=== PATIENT | male | born 1950 | race Caucasian/White ===

== ENCOUNTER 2018-08-05 10:07 | Inpatient (IN) ==
--- NOTE | 2018-07-16 12:22 | PAT Medication Instructions ---
Medication Instructions Date of Service July 16, 2018 Home Medications atorvastatin 20 mg PO QAM benazepril 20 mg PO QAM hydrochlorothiazide 25 mg PO QAM irbesartan 300 mg PO QAM DO NOT take the morning of surgery benazepril 20 mg PO QAM hydrochlorothiazide 25 mg PO QAM irbesartan 300 mg PO QAM Take morning of surgery With a small sip of water, OTHERWISE NOTHING TO EAT OR DRINK AFTER MIDNIGHT: atorvastatin 20 mg PO QAM Other Notes If you have any questions please call us at [phone] or [phone] or [phone] or [phone]
--- NOTE | 2018-07-17 08:22 | History & Physical Report ---
Date of Service July 17, 2018 Date of Surgery: 08-05-18 Assessment & Plan (1) Arthritis of right shoulder region: Risks and benefits of procedure discussed in detail today, patient would like to proceed with a right shoulder resurfacing vs total shoulder replacement at [facility] as scheduled on 08-05-18. Will place on ASA 81mg po bid x 1 month post op, f/u 2 weeks post op for routine post-operative care and x-ray, sooner if having any problems. will make arrangements for OPPT at the time of discharge as [place]. At this point in time, has failed conservative measures and would like to proceed with surgical intervention. History of Present Illness Chief Complaint: Right Shoulder pain Primary Care Provider: Christopher Warner Mr Smith is a 68 year old male who complains of right shoulder pain, presents for pre-op evaluation prior to Right shoulder resurfacing vs total shoulder replacement on 08-05-[address] Burnett. Pt had prior surgery in the . He presents with pain and decreased ROM on the right side. He states that the symptoms have been chronic non-traumatic. The symptoms occur constantly with intermittent worsening, and currently the patient states that the symptoms are moderate. The patient is experiencing pain anterior shoulder as well as lateral. The symptoms are aggravated by daily activities, lifting away from the body, reaching behind and reaching overhead. He denies any instability, currently rates his pain as 5/10, worse is 8/10. his xrays show advanced degenerative changes to the glenohumeral joint. Allergies Allergy/AdvReac Type Severity Reaction Status Date / Time No Known Allergies Allergy Unverified 07/16/18 11:12 Home Medications Home Medications Medication Instructions Recorded Confirmed Type atorvastatin 20 mg PO QAM 07/16/18 07/16/18 History benazepril 20 mg PO QAM 07/16/18 07/16/18 History hydrochlorothiazide 25 mg PO QAM 07/16/18 07/16/18 History irbesartan 300 mg PO QAM 07/16/18 07/16/18 History Past Med/Surg History Medical History Hyperlipidemia Hypertension Surgical History History of appendectomy History of colonoscopy History of total knee replacement BILATERAL S/P rotator cuff repair in the Family History Brother Family history of diabetes mellitus Social History Preferred Language: Cambodian Communication Ability: Effective Solar [employer] Required: No Beliefs That Will Affect Care: None Current Living Situation: Spouse Other Information That Helps Us Care for You: No Feels Safe at Home: Yes Safety Concerns: Feels Safe At This Time Smoking Status: Never smoker Do You Dip or Chew Tobacco: No Second Hand Exposure: No Tobacco Cessation Education Requested by Patient: No Hx Alcohol Use: No Hx Substance Use: No Review of Systems Review of Systems: All systems reviewed & are unremarkable except as noted in HPI & below Constitutional: no fever, no chills and no sweats Respiratory: no cough and no dyspnea Cardiovascular: no chest pain, no dyspnea and no orthopnea Gastrointestinal: no abdominal pain, no nausea and no vomiting Musculoskeletal: as per Subjective / HPI Integumentary: no rash and no lesions Physical Exam Physical Exam: Ht: 5ft 11in Wt: 108.86kg BP: 148/86 Pulse: 82 Constitutional: WD/WN, vitals as above no acute distress Respiratory: normal respiratory effort, lungs clear to auscultation no respiratory distress, no labored breathing and does not use accessory muscles Cardiovascular: RRR, no murmur, no edema Gastrointestinal (Abdomen): normal bowel sounds, soft, nontender, no hepatosplenomegaly Inspection/Auscultation: abdomen not distended Musculoskeletal: Right Shoulder Physical Exam There is no ecchymosis or warmth, no significant swelling, positive Crepitation with active motion, Tenderness anterior aspect shoulder and AC joint. Belly press - Positive. Valladares Positive. Cross Body Positive. Neer's - positive. Strength tests - External rotation 4/5, Supraspinatus 4/5 no atrophy, Right shoulder range of motion: Active ROM - Flexion: 120 degrees, Ext Rot 90 Flex: 30 degrees, Abduction: 45 degrees, Factors: pain, Description: Pain with ROM. Passive ROM - Factors: pain. Neurovascular- Radial pulse palpable, radial/median/ulnar nerves intact. Elbow- full painless range of motion, no tenderness. Skin: no rashes, warm and dry Results & Data Diagnostic Findings right shoulder xray from 06-09-18 showing advanced degenerative changes to the right glenohumeral joint with osteophytes noted, complete loss of joint space, DJD AC joint. cystic changes humeral head, large osteophyte formation . no acute bony pathology.
--- NOTE | 2018-07-17 10:03 | Anesthesiology Consultation ---
Date of Service July 17, 2018 Assessment & Plan (1) Encounter for pre-operative examination: PCP CLEARANCE (07/29) = "preop labs and EKG reviewed and are acceptable and the patient is cleared for the planned surgery." *BP at PCP Clearance was 128/80 Chart Review Chart Review: Acceptable Risk for Surgery and Patient seen in Pre Admission Testing Teaching & Discussion Instructed NPO after midnight before surgery, except medications with 15 cc of water. Medication instructions provided according to the PAT guidelines. History Surgery Operation Date: 08/05/18 13:00 Proposed Procedures p Right Shoulder Tournier Resurfacing versus Hemiarthroplasty versus Total Shoulder Arthroplasy - Santo Burnett DO Height/Weight Height: 5 ft 11 in Weight: 110 kg Allergies Allergy/AdvReac Type Severity Reaction Status Date / Time No Known Allergies Allergy Unverified 07/16/18 11:12 Medications Home Medications Medication Instructions Recorded Confirmed Last Taken atorvastatin 20 mg PO QAM 07/16/18 07/16/18 Unknown benazepril 20 mg PO QAM 07/16/18 07/16/18 Unknown hydrochlorothiazide 25 mg PO QAM 07/16/18 07/16/18 Unknown irbesartan 300 mg PO QAM 07/16/18 07/16/18 Unknown Past Medical History Medical History Hyperlipidemia Hypertension Obesity Exercise / Class Metabolic Activity II 4-5 Yardwork/Stairs/Walk up hill (denies CP or SOB with several flights of stairs) Past Family History Family History Brother Family history of diabetes mellitus Past Surgical History Surgical History History of appendectomy History of colonoscopy History of total knee replacement BILATERAL S/P rotator cuff repair in the Past Anesthesia History No Hx of Anesthesia Complications and No Family Hx of Anesthesia Complications History of PONV No Hx of PONV and No Hx of Motion Sickness Social History Smoking Status: Never smoker Do You Dip or Chew Tobacco: No Hx Alcohol Use: Yes (very rare, once/month) Hx Substance Use: No substance use type: does not use Review of Systems Pt denies any recent chest pain, shortness of breath, palpitations, cough, fever or URI. Physical Exam Vital Signs BP: 152/91 (pt states this is abnormally high for him, he will be seen by PCP ) P: 52bpm SPO2: 97% RA T: 97.4 F R: 12 ENMT Mouth: no dental restorations, no chipped teeth and no loose teeth Thyromental Distance: > or= 3.5 Finger Breadths (3.5) Mallampati Class: I Missing two bicuspid R upper side. Neck normal visual inspection and + facial hair (thin short jean baptiste and mustache); neck extension not limited Respiratory normal respiratory effort Auscultation: lungs clear to auscultation bilaterally Cardiovascular Rate/Rhythm: regular rhythm and + bradycardic Heart Sounds: no murmur Vessels: no carotid bruit Extremities: no edema Testing Electrocardiogram Date: 07/17/18 Findings: + SB @ (51 with sinus arrhythmia) Nonspecific T wave abnormality. Chest X-Ray Date: 07/17/18 Findings: + NAD Laboratory Results PT 11.6 Seconds (9.0-12.0) 07/17/18 11:16 INR 1.1 (0.9-1.1) 07/17/18 11:16 APTT 26.2 Seconds (21.0-31.0) 07/17/18 11:16 Yellow 07/17/18 11:16 Clear (Clear) 07/17/18 11:16 >= 9.0 (4.5-7.5) H 07/17/18 11:16 Ur Specific [place] 1.010 (1.000-1.030) 07/17/18 11:16 Negative (Negative) 07/17/18 11:16 Negative (Negative) 07/17/18 11:16 Negative (Negative) 07/17/18 11:16 Negative (Negative) 07/17/18 11:16 Ur Leukocyte Esterase Negative (Negative) 07/17/18 11:16 Blood Type A Positive 07/17/18 11:16 Antibody Screen NEGATIVE 07/17/18 11:16 06/16/18 WBC: 4.51 H/H: 13.8/41.1 PLATELETS: 206 SODIUM: 139 POTASSIUM: 3.7 CHLORIDE: 108 CO2: 25.0 BUN: 23 CREATININE: 0.95 GLUCOSE: 102 A1C: 5.9%
--- NOTE | 2018-07-17 10:45 | XRay Report ---
XR chest Pre-admission PA/Lat HISTORY: 68 years-old Male pat preoperative exam. No acute chest complaints COMPARISON: Chest radiographs 06/23/2015 TECHNIQUE: PA and lateral views of the chest FINDINGS: Cardiomediastinal and hilar silhouettes are unchanged. There is no pneumothorax, pleural effusion, fo dewayne airspace consolidation or overt pulmonary edema. Degenerative changes of the shoulders and spine. IMPRESSION: No acute process. The above report was generated using voice recognition software. It may contain grammatical, syntax o r spelling errors. Electronically signed by: Tahir Jackson M.D. 07/17/2018 10:44 AM
[2018-07-17 12:28] LABS: INR 1.1 (0.9-1.1); Partial Thromboplastin Time 26.2 Seconds (21.0-31.0); Prothrombin Time 11.6 Seconds (9.0-12.0)
[2018-07-17 12:35] LABS: Appearance Urine Clear (Clear); Bilirubin Urine Negative (Negative); Blood Urine Negative (Negative); Color Urine Yellow; Glucose Urine UA Negative (Negative); Ketones Urine Negative (Negative); Leukocyte Esterase Urine Negative (Negative); Nitrite Urine Negative (Negative); Protein Urine Negative (Negative); Urobilinogen Urine Negative (Negative); pH Urine >= 9.0 (4.5-7.5)
[~2018-08-05 10:07] MED LIST: ACETAMINOPHEN 500 MG TAB PO SCH; CEFAZOLIN 2000MG 2,000 MG/15 ML SYR IV SCH; CeleBREX 200 MG CAP PO SCH; FAMOTIDINE 20 MG TAB PO SCH; GABAPENTIN 300 MG PO SCH; LR 15ML/HR IV SCH; METOCLOPRAMIDE HCL 10 MG TABLET PO SCH; ROPIVACAINE 0.5% 5 MG/ML 30 ML VIAL ONE; ROPIVACAINE 0.5% HCL/PF 150 MG, BUPIVACAINE 0.5% MPF 30 ML, EPINEPHrine 30MG/30ML (OR U... INFIL SCH; dexAMETHasone 4 MG TAB PO SCH
--- NOTE | 2018-08-05 10:54 | History & Physical Bridge Note ---
Date of Service August 05, 2018 History & Physical Bridge Note I have examined the patient, reviewed the History & Physical and in the interval since the performance of the History & Physical I have noted the following changes of clinical significance: no changes noted
[2018-08-05] MEDS ORDERED: fentaNYL citrate 100 MCG/2 ML VIAL ONE (11:10)
[2018-08-05] MEDS ORDERED: MIDAZOLAM HCL 1 MG/ML 2ML VIAL ONE (11:10)
[2018-08-05] MEDS ORDERED: BACITRACIN INJ 50,000 UNIT VIAL ONE (12:56)
[2018-08-05] MEDS ORDERED: THROMBIN FOR SOLN 20000 UNIT KIT ONE (12:56)
[2018-08-05] MEDS ORDERED: DEXAMETHASONE SOD INJ 4 MG/ML VIAL ONE (13:40)
[2018-08-05] MEDS ORDERED: GLYCOPYRROLATE 0.2 MG/ML VIAL ONE (13:40)
[2018-08-05] MEDS ORDERED: ePHEDrine sulfate 50 MG/ML SYR ONE (13:40)
[2018-08-05] MEDS ORDERED: LIDOCAINE HCL 2% 2 ML VIAL/AMP(20MG/ML) INFIL ONE (13:40)
[2018-08-05] MEDS ORDERED: PROPOFOL IV EMULSION 10 MG/ML 20 ML VIAL IV ONE (13:40)
[2018-08-05] MEDS ORDERED: NEOSTIGMINE METHYLSULFATE 5 MG/5 ML SYR ONE (13:40)
[2018-08-05] MEDS ORDERED: ROCURONIUM BROMIDE 10 MG/ML 5 ML VIAL ONE (13:40)
[2018-08-05] MEDS ORDERED: LARYING-O-JET KIT (LTA) ONE (13:40)
[2018-08-05] MEDS ORDERED: ONDANSETRON INJ 2 MG/ML 2 ML VIAL ONE (13:40)
[2018-08-05] MEDS ORDERED: ATROPINE SULFATE 0.1 MG/ML 10ML SYR IV PRN (14:06)
[2018-08-05] MEDS ORDERED: HYDROmorphone INJ 1 MG/ML SYRINGE IV PRN ×2 (14:06→16:16)
[2018-08-05] MEDS ORDERED: ePHEDrine sulfate 50 MG/ML AMP IV PRN (14:06)
[2018-08-05] MEDS ORDERED: ORTHO JOINT ANESTHETIC ONE (14:12)
--- NOTE | 2018-08-05 14:38 | Operative Report ---
Post Operative Report Pre & Post Diagnosis Operation Date: 08/05/18 13:00 Pre-Op Diagnosis: Primary Osteoarthritis, Right Shoulder Post-Op Diagnosis: Primary Osteoarthritis, Right Shoulder Procedure Right shoulder hemiarthroplasty utilizing Tournier hemiarthroplasty 52 x 19 implant Operation Date: 08/05/18 13:00 <No data on this case meets the specified criteria> Surgeon Santo Burnett DO Materials Development Engineer Jabari TELLES Estimated Blood Loss 20 Findings Consistent with Post-Op Diagnosis Patient presents with severe end-stage DJD right shoulder with eburnated bone and osteophytes involving the humeral head the glenoid was otherwise in satisf actory condition without any type of biconcavity the humeral head that was clearly down eburnated bone with large osteophytes humeral head with some subchondral cystic changes Specimens Bone and cartilage Drains Medium bore Hemovac Complications none Disposition Accompanied Patient To Recovery: No Disposition: Recovery Room Indications Patient presents with severe end-stage ongoing right shoulder pain no response to conservative management including physical therapy anti-inflammatories relative rest corticosteroid injections as well as Visco supplementations with ongoing pain bone the bone pain and cogwheeling the above intraoperative intra- articular findings were noted at the time of surgery. Description of Procedure After proper prepping and draping the right shoulder region and incision in the region of her interval was made dissection was carried down the cephalic vein was identified and was retracted lateralward with the deltoid muscle anterior shoulder capsule was identified the subscapularis tendon was reflected off the anterior aspect of the humerus and tagged with the stay sutures of #1 Ethibond subsequently the humeral head being evaluated the glenoid was evaluated osteophytes were removed from humeral head was sized to 52 x 19 was subsequently reversed reamed for excellent fit and fill of a Tornier implant subsequently the three #5 FiberWire sutures were placed through the anterior tuberosity and passed prior to placing the final component was irrigated with copious muscle sterile saline solution the trial component been taken through full range of motion and provided excellent stability since when the final implant was placed intact press-fit into position the subscapularis tendon was repaired back to bed of bleeding bone utilizing #5 FiberWire the wound was irrigated with copious muscle sterile saline solution impregnated debris is removed the deltopectoral interval was closed with #3-0 Vicryl skin was closed with 3-0 Vicryl and skin clips sterile compressive dressings placed patient to be bore Hemovac in place a deep wound jabari Coco TELLES was necessary prepping draping retraction wound closure of the fascia subcu and skin was necessary for the case I attest to the content of the Intraoperative Record and any orders documented therein. Any exceptions are noted below.
--- NOTE | 2018-08-05 15:20 | XRay Report ---
XR shoulder RT min 2V routine CLINICAL HISTORY: Post shoulder surgery COMPARISON: None FINDINGS: Postoperative findings within the right shoulder are noted consistent with resurfacing. Th e hardware is intact. There is a surgical drain. There is no acute fracture. There is no unexpected r adiopaque foreign body. Joint space narrowing and osteophytosis of the right acromioclavicular joint is noted. Mild right lower lung opacity favors atelectasis. IMPRESSION: Expected findings following right shoulder surgery. Electronically signed by: Roberto Spence M.D. 08/05/2018 3:19 PM
--- NOTE | 2018-08-05 15:40 | Anesthesiology Progress Note ---
Date of Service August 05, 2018 Anesthesia Post Procedure Vital Signs Vital Signs: Temp Pulse Pulse Resp BP Pulse Ox 08/05/18 15:35 36.2 C L 58 L 21 134/71 96 08/05/18 15:25 46 L 21 150/64 H 95 08/05/18 15:15 59 L 16 128/71 99 08/05/18 15:05 67 22 128/71 98 08/05/18 14:58 36.4 C L 69 16 140/80 98 08/05/18 10:57 37 C 54 L 20 169/87 H 100 Transfer of Care Handoff Completed per policy Notes Mental Status: alert / awake / arousable and participated in evaluation Patient Amnestic to Procedure: Yes Nausea / Vomiting: adequately controlled Pain: adequately controlled Airway Patency, RR, SpO2: stable & adequate BP & HR: stable & adequate Hydration State: stable & adequate Anesthetic Complications: no major complications apparent and Pt Satisfied with anesthetic care Notes: Block is functioning well.
[2018-08-05] MEDS ORDERED: SODIUM CHLORIDE 0.9% 1000ML 1,000 ML IV SCH (16:16)
[2018-08-05] MEDS ORDERED: NALOXONE HCL 0.4 MG/1 ML VIAL/CARP IV PRN (16:16)
[2018-08-05] MEDS ORDERED: OXYCODONE HCL IR 5 MG TAB (IMMEDIATE RELEASE) PO PRN (16:16)
[2018-08-05] MEDS ORDERED: ONDANSETRON INJ 2 MG/ML 2 ML VIAL IV PRN (16:16)
[2018-08-05] MEDS ORDERED: ALUMINUM/MAGNESIUM SUSP 30 ML UDC PO PRN (16:16)
[2018-08-05] MEDS ORDERED: BISACODYL 10 MG SUPP PR PRN (16:16)
[2018-08-05] MEDS ORDERED: METOCLOPRAMIDE HCL INJ 5 MG/ML 2 ML VIAL IV PRN (16:16)
[2018-08-05] MEDS ORDERED: MAGNESIUM HYDROXIDE SUSP 30 ML UDC PO PRN (16:16)
[2018-08-05] MEDS: KETOROLAC TROMETHAMINE 15 MG/ML VIAL IV SCH ×2 (18:24→22:22)
[2018-08-05] MEDS ORDERED: SENNA 8.6 MG TAB PO SCH (21:00)
[2018-08-05] MEDS: DOCUSATE SODIUM 100 MG CAP PO SCH (21:10)
[2018-08-05] MEDS: ASPIRIN 81 MG ECTAB PO SCH (21:10)
[2018-08-05] MEDS: CEFAZOLIN 2000MG 2,000 MG/15 ML SYR IV SCH (21:10)
[2018-08-05] MEDS: ACETAMINOPHEN 500 MG TAB PO SCH (21:11)
[2018-08-06] MEDS: CEFAZOLIN 2000MG 2,000 MG/15 ML SYR IV SCH (05:03)
[2018-08-06] MEDS: ACETAMINOPHEN 500 MG TAB PO SCH (05:04)
[2018-08-06] MEDS: KETOROLAC TROMETHAMINE 15 MG/ML VIAL IV SCH ×2 (05:04→10:49)
[2018-08-06 06:36] LABS: Hematocrit (blood only) 38.5 % (42-52); Hemoglobin 13.2 g/dL (14.0-18.0); Immature Granulocytes # (auto) 0.01 K/uL (0.00-0.02); Immature Granulocytes % (auto) 0.1 %; Lymphocytes # (auto) 0.55 K/uL (1.2-3.4); Lymphocytes % (auto) 7.6 %; Mean Corpuscular Hgb Conc 34.3 g/dL (32-36); Mean Corpuscular Volume 88.5 fL (80-100); Monocytes % (auto) 9.7 %; Neutrophils # (auto) 5.99 K/uL (1.4-6.5); Neutrophils % (auto) 82.6 %; Platelet Count 205 K/uL (130-400); RDW Coefficient of Variation 13.1 % (11.5-14.5); RDW Standard Deviation 42.6 fL (36.4-46.3); Red Blood Count 4.35 M/uL (4.7-6.1); White Blood Count 7.25 K/uL (4.8-10.8)
[2018-08-06 07:12] LABS: BUN Creatinine Ratio 17.8 (10-20); Calcium 8.3 mg/dl (8.5-10.1); Creatinine Clr Calc Pharmacy 91.8 ml/min; Est GFR (African American) 90.5; Est GFR (Non-African American) 78.1
--- NOTE | 2018-08-06 08:09 | Anesthesiology Progress Note ---
Date of Service August 06, 2018 Anesthesia Post Procedure Vital Signs Vital Signs: Temp Pulse Pulse Resp BP Pulse Ox 08/06/18 08:00 36.5 C 52 L 16 130/78 97 08/06/18 03:01 36.5 C 58 L 16 128/65 92 08/05/18 23:17 36.7 C 56 L 16 117/65 96 08/05/18 19:57 36.7 C 72 20 124/71 94 08/05/18 18:20 36.4 C L 65 20 132/71 94 08/05/18 17:20 36.5 C 56 L 20 138/77 97 08/05/18 16:56 36.4 C L 52 L 20 133/76 97 08/05/18 16:20 36.5 C 72 18 128/71 94 08/05/18 16:05 50 L 16 124/60 94 08/05/18 15:55 62 22 120/66 94 08/05/18 15:45 36.2 C L 49 L 20 126/66 95 08/05/18 15:35 36.2 C L 58 L 21 134/71 96 08/05/18 15:25 46 L 21 150/64 H 95 08/05/18 15:15 59 L 16 128/71 99 08/05/18 15:05 67 22 128/71 98 08/05/18 14:58 36.4 C L 69 16 140/80 98 08/05/18 10:57 37 C 54 L 20 169/87 H 100 Notes Mental Status: alert / awake / arousable and participated in evaluation Patient Amnestic to Procedure: Yes Nausea / Vomiting: adequately controlled Pain: adequately controlled Airway Patency, RR, SpO2: stable & adequate BP & HR: stable & adequate Hydration State: stable & adequate Anesthetic Complications: no major complications apparent
--- NOTE | 2018-08-06 08:25 | Orthopedic Progress Note ---
Date of Service August 06, 2018 Assessment & Plan (1) Arthritis of right shoulder region: Postop day 1 status post right shoulder resurfacing. PT and OT protocols today. Nonweightbearing on the right upper extremity. DVT prophylaxis with SCDs, LETICIA hose, aspirin twice daily. Pain management with acetaminophen, oxycodone, hydromorphone. DC planning-patient is planning on discharge to home today with outpatient PT. Subjective Postop day 1 status post right shoulder resurfacing. Patient is currently sitting up in bed. He is awake alert and oriented. He has no complaints this morning. Pain is controlled. Physical Exam Physical Exam: Original dressing has been changed and the drain has been removed per nursing staff. Current dressing is clean dry and intact. No overt erythema or swelling is noted. Sling is in place. He is nontender at the elbow and wrist. He has good range of motion of his right wrist hand and fingers. He has some slight weakness and range of motion of the thumb and some residual decreased sensation but states that it is continuing to return. Sensation is intact with all the other fingers and hand. Otherwise neurovascular intact. Results & Data Vital Signs (Past 12 Hours) Vital Signs Temp Pulse Resp BP Pulse Ox 08/06/18 08:00 36.5 C 52 L 16 130/78 97 08/06/18 03:01 36.5 C 58 L 16 128/65 92 08/05/18 23:17 36.7 C 56 L 16 117/65 96
[2018-08-06] MEDS: ASPIRIN 81 MG ECTAB PO SCH (08:56)
[2018-08-06] MEDS: DOCUSATE SODIUM 100 MG CAP PO SCH (08:56)
[2018-08-06] MEDS ORDERED: MULTIVITAMIN TAB PO SCH (09:00)
[2018-08-06] MEDS ORDERED: IRBESARTAN 150 MG TAB PO SCH (09:00)
[2018-08-06] MEDS ORDERED: ENALAPRIL MALEATE 10 MG TAB PO SCH (09:00)
[2018-08-06] MEDS ORDERED: ATORVASTATIN 20 MG TAB PO SCH (09:00)
--- NOTE | 2018-08-06 13:11 | Discharge Summary ---
Date of Service date of discharge: August 06, 2018 date of admission: 08/05/18 Admission HPI Per Admitting Provider Mr Smith is a 68 year old male who complains of right shoulder pain, presents for pre-op evaluation prior to Right shoulder resurfacing vs total shoulder replacement on 08-05-[address] Burnett. Pt had prior surgery in the 1980s. He presents with pain and decreased ROM on the right side. He states that the symptoms have been chronic non-traumatic. The symptoms occur constantly with intermittent worsening, and currently the patient states that the symptoms are moderate. The patient is experiencing pain anterior shoulder as well as lateral. The symptoms are aggravated by daily activities, lifting away from the body, reaching behind and reaching overhead. He denies any instability, currently rates his pain as 5/10, worse is 8/10. his xrays show advanced degenerative changes to the glenohumeral joint. Principal Diagnosis right shoulder glenohumeral osteoarthritis Discharge Exam Vital Signs Temp Pulse Pulse Resp BP Pulse Ox 08/06/18 11:35 36.5 C 72 52 L 16 130/78 97 08/06/18 08:00 36.5 C 52 L 16 130/78 97 08/06/18 03:01 36.5 C 58 L 16 128/65 92 08/05/18 23:17 36.7 C 56 L 16 117/65 96 08/05/18 19:57 36.7 C 72 20 124/71 94 08/05/18 18:20 36.4 C L 65 20 132/71 94 08/05/18 17:20 36.5 C 56 L 20 138/77 97 08/05/18 16:56 36.4 C L 52 L 20 133/76 97 08/05/18 16:20 36.5 C 72 18 128/71 94 08/05/18 16:05 50 L 16 124/60 94 08/05/18 15:55 62 22 120/66 94 08/05/18 15:45 36.2 C L 49 L 20 126/66 95 08/05/18 15:35 36.2 C L 58 L 21 134/71 96 08/05/18 15:25 46 L 21 150/64 H 95 08/05/18 15:15 59 L 16 128/71 99 08/05/18 15:05 67 22 128/71 98 08/05/18 14:58 36.4 C L 69 16 140/80 98 Intake and Output 08/05/18 08/06/18 08/06/18 22:59 06:59 14:59 Intake Total 1275 / 3175 500 / 3175 Output Total 1025 / 1070 25 / 1070 Balance 250 / 2105 475 / 2105 Intake: Oral 1275 / 1775 500 / 1775 Output: Urine 900 / 900 Drain Output 125 / 150 25 / 150 Right Shoulder Hemovac 125 / 150 25 / 150 Other: # Unmeasured Voids 1 Weight 110.359 kg Patient Weight 08/07/18 06:59 Weight 110.359 kg Musculoskeletal Original dressing has been changed and the drain has been removed per nursing staff. Current dressing is clean dry and intact. No overt erythema or swelling is noted. Sling is in place. He is nontender at the elbow and wrist. He has good range of motion of his right wrist hand and fingers. He has some slight weakness and range of motion of the thumb and some residual decreased sensation but states that it is continuing to return. Sensation is intact with all the other fingers and hand. Otherwise neurovascular intact. Discharge Data Allergies Allergy/AdvReac Type Severity Reaction Status Date / Time No Known Allergies Allergy Verified 08/05/18 10:38 Consultations 08/05/18 16:16 Consult Case Management - Discharge Planning Routine Procedures Performed Operation Date: 08/05/18 13:00 Actual Procedures p Right Shoulder Resurfacing Hemiarthroplasty(Right) - Santo Burnett DO Ordered Studies 08/05/18 05:00 US - OR guided needle placemen Routine Hospital Course (1) Arthritis of right shoulder region: Postop day 1 status post right shoulder resurfacing. PT and OT protocols today. Nonweightbearing on the right upper extremity. DVT prophylaxis with SCDs, LETICIA hose, aspirin twice daily. Pain management with acetaminophen, oxycodone, hydromorphone. DC planning-patient is planning on discharge to home today with outpatient PT. Total Time Total Time Spent Total Time Spent (In Minutes): 20 Discharge Plan Discharge Items Patient Disposition: Home - Self-Care Reason For Visit: Primary Osteoarthritis, Right Shoulder Discharge Diagnosis: Osteoarthritis Right Shoulder Discharge Goals: Decrease discomfort and Improve function Activity: Per 'Additional Instructions' section Weightbearing: Right non-weightbearing Non-emergency contact: Surgeon Call non-emergency contact if: your pain is not controlled, your temperature is above 101.5, your wound has increased redness and your wound has increased drainage Follow-up/Referrals: Christopher Warner [Primary Care Provider] - Diet: Regular Addtl Provider Instructions: ACTIVITY RECOMMENDATIONS: SELF CARE INSTRUCTIONS AFTER SHOULDER HEMIARTHROPLASTY/RESURFACING A. You may do daily exercises as taught in physical therapy while in hospital. No lifting with the operative arm. Please schedule your outpatient physical therapy appointment to begin within 2-3 days after leaving the hospital. Specific restrictions will be written on your physical therapy prescription that is provided to you. B. You are to wear your sling/immobilizer at all times EXCEPT when performing your daily exercises, participating in physical therapy and for hygiene purposes. C. You may perform dry, daily dressing changes. Please keep your incision covered. You may shower 48 hours after surgery. Do not apply soap or any ointment/lotions directly over incision. Do not soak incision in bath tub/swimming pool. D. You may use ice as needed to operative shoulder. SPECIAL CARE INSTRUCTIONS: MEDICATION INSTRUCTIONS: *It is recommended you take Aspirin 325mg daily for four weeks post-op. VERY IMPORTANT TO READ AND REVIEW A. There are a few signs you need to watch for after you are home. Call [facility] at [phone] if you experience any of the followin. Increased severe shoulder pain. Some pain is expected especially when you exercise. 2. Increased swelling in you shoulder or arm; pain or swelling in either upper extremity. 3. Any fluid drainage from the incision. 4. Shortness of breath or chest pain. B. Please call [facility] at [phone] if you have any questions or concerns about your operation or recovery. C. Call your physician if: 1. Temperature is greater than 101 degrees (F). 2. Pain is not relieved by prescribed pain medications. 3. Increase drainage or redness from incision. 4. Unanswered questions or concerns. FOLLOW UP VISIT: Please call [facility] at [phone] to schedule a follow up appointment with Dr. Burnett or his PA in 12-14 days from your surgery date. Prescriptions: New aspirin [Ecotrin Low Strength] 81 mg Tablet,Delayed Release (Dr/Ec) 81 mg PO BID 30 Days Qty: 60 RF: 0 acetaminophen [Tylenol Extra Strength] 500 mg Tablet 1,000 mg PO Q8 14 Days Qty: 84 RF: 0 oxycodone-acetaminophen [Percocet] 5-325 mg tablet 1 - 2 tab PO Q6H PRN (Reason: pain) Qty: 30 RF: 0 Continued atorvastatin 20 mg Tablet 20 mg PO QAM RF: 0 benazepril 20 mg Tablet 20 mg PO QAM RF: 0 hydrochlorothiazide 25 mg Tablet 25 mg PO QAM RF: 0 irbesartan 300 mg Tablet 300 mg PO QAM RF: 0 Stand-Alone Forms: [facility] Discharge Orders: Discharge Order (Routine); Ordered 08/06/18 Ordered By: Lon Donahue Admission Data Admit Date/Time: 08/05/18 15:02 Attending Provider: Santo Burnett Admit Provider: Santo Burnett Primary Care Provider: Christopher Warner Service: Surgical Services Other Interventions: Discharge Summary Assessment (RN) Last Done: 08/06/18 11:35 DC Date/Time DO NOT enter until pt leaves facility: 08/06/18 11:57
[2018-08-06] MEDS ORDERED: CeleBREX 200 MG CAP PO SCH (21:00)
== END 2018-08-06 11:57 | disposition home or self-care (01) | DRG 483 ==
LOC: ASU 10:07 → 3E 15:02